=== PATIENT | male | born 2000 | race Caucasian/White ===

== ENCOUNTER 2018-03-24 21:49 | Emergency (ER) | payer SELFPAY, OTHER | END 2018-03-25 00:07 | disposition home or self-care (01) | LOC: ED 21:49 | DX: S00.33XA Contusion of nose, initial encounter (principal); W50.0XXA Accidental hit or strike by another person, initial encounter; Y93.67 Activity, basketball; Y92.320 Baseball field as the place of occurrence of the external cause; Y99.8 Other external cause status ==